=== PATIENT | female | born 1955 | race Caucasian/White ===

== ENCOUNTER 2017-11-27 11:44 | Emergency (ER) | payer BC ==
[~2017-11-27] VITALS: Ht 165.1 cm; Wt 100.0 kg
[2017-11-27] MEDS ORDERED: CARVEDILOL6.25 MG PO (12:41)
[2017-11-27] MEDS ORDERED: ZETIA10 MG PO (12:45)
[2017-11-27] MEDS ORDERED: EC-NAPROSYN500 MG PO (13:21)
[2017-11-27] MEDS ORDERED: TRAMADOL HYDROC50 MG PO (13:21)
[2017-11-27 13:50] VITALS: BP 148/90
== END 2017-11-27 13:50 | disposition home or self-care (01) | DRG 556 ==
LOC: ED 11:44
DX: M25.562 Pain in left knee (principal); X50.3XXA Overexertion from repetitive movements, initial encounter; Y93.49 Activity, other involving dancing and other rhythmic movements; Y92.9 Unspecified place or not applicable

== ENCOUNTER → 2019-01-17 | Outpatient (REF) | payer BC ==
[~2019-01-17] MED LIST: CARVEDILOL6.25 MG PO; EC-NAPROSYN500 MG PO; TRAMADOL HYDROC50 MG PO; ZETIA10 MG PO
== END | disposition home or self-care (01) | DRG 204 ==
LOC: RT 11:39
PROVIDERS: ATTEND Internal Medicine
DX: R06.00 Dyspnea, unspecified (principal)

== ENCOUNTER → 2019-01-18 | Outpatient (REF) | payer BC ==
[2019-01-18 09:31] LABS: ANION GAP 15 (6-22 (CALC)); BUN 17 mg/dL (8-23); BUN/CREATININE RATIO 26 (12-20 (CALC)); CARBON DIOXIDE 27 mmol/l (22-30); CHLORIDE 104 mmol/l (95-108); CREATININE 0.6 mg/dL (0.5-1.0); GFR > 60 ML/MIN (>=60 (CALC)); GFR FOR AFR.AMER. > 60 ML/MIN (>=60 (CALC)); POTASSIUM 4.8 mmol/l (3.5-5.1); SODIUM 142 mmol/l (137-146)
== END | disposition home or self-care (01) | DRG 948 ==
LOC: LAB 08:05
PROVIDERS: ATTEND Internal Medicine
DX: R79.89 Other specified abnormal findings of blood chemistry (principal)